=== PATIENT | male | born 1990 | race Two or more races ===

== ENCOUNTER 2022-03-06 11:15 | Outpatient (CLI) | payer OTHER | END 2022-03-06 23:59 | disposition home or self-care (01) | LOC: LAB 11:15 | PROVIDERS: ATTEND Specialist | DX: Z01.812 Encounter for preprocedural laboratory examination (principal); Z20.822 Contact with and (suspected) exposure to COVID-19 | CPT/HCPCS: U0003; C9803 ==

== ENCOUNTER 2022-03-10 05:09 | Day surgery (SDC) | payer OTHER ==
[2022-03-10 05:45] VITALS: BP 104/66
--- NOTE | 2022-03-10 06:08 | NUR ---
DAY SURGERY ADMITTING NOTE PATIENT ARRIVED TO UNIT AMBULATING. PATIENT IS HERE FOR RIGHT SHOULDER ARTHROSCOPY ALANIS REPAIR. PATIENT IS ALERT AND ORIENTED X 4. ABLE TO MAKE NEEDS KNOWN. ENDORSES PAIN 6/10 TO RIGHT SHOULDER. PATIENT HAS BEEN NPO SINCE 03/09 @ 1800. LAST VOID WAS THIS AM PRIOR TO ARRIVAL. PATIENT HAS PAST MEDICAL HISTORY OF ADHD AND PAST SURGICAL HX OF FACIAL REPAIR AND UNDESCENDED TESTICULAR SX. SKIN ASSESSMENT PERFORMED WITH SKIN NOTED TO BE INTACT. IV WAS PLACED TO LEFT AC #20G. MRSA SWAB COLLECTED AND SENT TO LAB. VS: BP 104/66 HR 70 RR 18 T 98.4 O2 SAT 99% ON ROOM AIR. BELONGINGS LIST COMPLETED AND PLACED IN CHART. BELONGINGS CURRENTLY AT BEDSIDE. PATIENT STATES HIS FATHER, DULCE ABRAHAM, WILL PICK HIM UP. REQUESTED FOR NURSING TO CALL HIM AFTER SURGERY. DULCE ABRAHAM PHONE NUMBER [phone]. PATIENT IS VACCINATED AGAINST COVID-19 WITH PFIZER VACCINE X 2 AND BOOSTER IN 2020. CALL LIGHT WITHIN REACH. PATIENT ORIENTED TO ROOM. PATIENT IS AMBULATORY WITH STEADY GAIT. ALL NEEDS ATTENDED TO AT THIS TIME.
--- NOTE | 2022-03-10 06:20 | NUR ---
RN NOTE [employer]ACCO PREVENTION HEALTH EDUCATOR HERE TO TAKE PATIENT DOWN TO SURGERY. ALL CONSENTS SIGNED AND IN CHART. SURGICAL CHECK LIST COMPLETED. WILL ENDORSE PLAN OF CARE TO ONCOMING SHIFT RN.
[2022-03-10] MEDS ORDERED: FENTANYL PF 100MCG/2ML AMPUL ONE (06:23)
[2022-03-10] MEDS ORDERED: MIDAZOLAM HCL 2 MG/2ML VIAL ONE (06:23)
[2022-03-10] MEDS ORDERED: ROCURONIUM BROMIDE 50 MG/5 ML ONE (06:23)
[2022-03-10] MEDS ORDERED: methylPREDNISolone ACETATE 80 MG/ML VIAL ONE (06:32)
[2022-03-10] MEDS ORDERED: EPINEPHRINE (1:1000) 1 MG/ML AMPUL ONE (06:32)
[2022-03-10] MEDS ORDERED: BUPIVACAINE 0.5 % PF 150 MG/30 ML VIAL ONE (06:32)
[2022-03-10] MEDS ORDERED: BUPIVACAINE MPF 0.5% W/EPI INJ 30 ML VIAL ONE (06:37)
--- NOTE | 2022-03-10 09:30 | NUR ---
MS RN NOTES PATIENT BROUGHT BACK TO UNIT FROM SURGERY. V/S WNL, PATIENT A/O X 4, ABLE TO MAKE NEEDS KNOWN. TOLERATING WELL ON ROOM AIR WITH NO S/S RESPIRATORY DISTRESS. PRN NORCO TO BE GIVEN FOR PAIN. SAFETY MEASURES IN PLACE: BED IN LOWEST LOCKED POSITION, SIDE RAILS UP X 2, CALL LIGHT WITHIN REACH. WILL CONTINUE TO MONITOR.
[2022-03-10] MEDS ORDERED: HYDROCODONE/APAP 5/325MG TABLET PO PRN ×2 (10:00)
--- NOTE | 2022-03-10 12:30 | NUR ---
DAY SURGERY DISCHARGE NOTES PATIENT MADE AWARE OF MD DISCHARGE INSTRUCTIONS. PATIENT VERBALIZED UNDERSTANDING OF MD DISCHARGE INSTRUCTIONS AND SIGNED INSTRUCTIONS SHEET. IV LINE AND ID BAND REMOVED. EDUCATION PROVIDED BY PT ON CORRECT USE OF SLING AND SWATH. PATIENT VERBALIZED UNDERSTANDING OF ALL EDUCATION PROVIDED. PATIENT TRANSPORTED OFF OF UNIT VIA WHEELCHAIR ACCOMPANIED BY HOT PIPE GAUGER. PATIENT STABLE AT TIME OF DISCHARGE. ALL NEEDS MET.
== END 2022-03-10 19:00 | disposition home or self-care (01) ==
LOC: DS 05:09 → MED 05:10 → UNDOADMIN 05:10 → UNDODISIN 12:45 → DS 19:00
PROVIDERS: ATTEND Specialist
DX: S43.431A Superior glenoid labrum lesion of right shoulder, initial encounter (principal); X58.XXXA Exposure to other specified factors, initial encounter; Y93.89 Activity, other specified; Y92.89 Other specified places as the place of occurrence of the external cause; Y99.8 Other external cause status; Z98.890 Other specified postprocedural states; Z79.899 Other long term (current) drug therapy
CPT/HCPCS: 29806; 86850; 36415; 87081; J0690; J3490 ×3; J1100; J2704; J0171; J3010; J0330; J1885; J2405; C1713; J7030; J7050; J2250; A6253; A4217; A4565; G0378; J1040